=== PATIENT | female | born 1975 | race Caucasian/White ===

== ENCOUNTER 2017-01-27 11:26 | Day surgery (SDC) | payer OTHER ==
--- NOTE | 2017-01-27 08:22 | HP ---
DATE OF SURGERY: 01/27/2017 HISTORY OF PRESENT ILLNESS: The patient is a 41 year-old with nausea all the time, occasional right upper quadrant pain. No jaundice. She had an ultrasound show cholelithiasis. She was seen by Dr. Gomez some time ago and was originally scheduled for cholecystectomy at that time but had some bronchitis and then did not reschedule until now when she was having more symptoms so desires cholecystectomy at this time. PAST MEDICAL HISTORY: Anxiety, depression. MEDICATIONS: Zoloft, Prilosec, Flonase. ALLERGIES: SULFA. PAST SURGICAL HISTORY: Cyst removed from her ovary. She had tumor removed from her leg in the past. FAMILY HISTORY: Stomach and vulvar cancer. Prostate cancer. SOCIAL HISTORY: One pack per day smoker. Denies any alcohol abuse. REVIEW OF SYSTEMS: Ten systems reviewed per admission assessment. No chest pain or palpitations other systems negative or noncontributory as above and per preadmission questionnaire. PHYSICAL EXAMINATION: GENERAL: No acute distress. HEENT: Sclerae nonicteric. NECK: No JVD. CHEST: Equal excursion, nonlabored breathing. CVS: Regular rate and rhythm. ABDOMEN: Soft, some mild tenderness right upper quadrant. No peritoneal signs. EXTREMITIES: No significant edema. NEURO: Alert, oriented, moving extremities symmetrically. No gross motor deficits noted. IMPRESSION: Symptomatic cholelithiasis, probable chronic cholecystitis. I feel the patient will benefit from cholecystectomy. Risks and benefits explained in detail including but not limited to bleeding or infection, risk of trocar injury or hernia, small risk of bowel, bladder or blood vessel injury, small risk of bile leak, bile duct injury, retained stone or sludge possibly requiring further procedure either open or ERCP, general risk of anesthesia, deep venous thrombosis, pulmonary embolism, pneumonia, possibility of need to convert to open procedure with possibility that this procedure may not improve her symptoms that she may need further work up and/or testing, other studies or procedures. She understands and agrees to the planned procedure, will proceed with laparoscopic cholecystectomy with possible open as an outpatient.
[~2017-01-27 11:26] MED LIST: BRIDION 200MG/2ML IV ONE; DILAUDID 2 MG INJECTION IV ONE; DIPRIVAN 200 MG/20 ML IV ONE; Decadron 4 MG INJ IV ONE; Lactated Ringers 1,000 ML IV ONE; Lactated Ringers 1,000 ML IV SCH; MEFOXIN 2 GM PREMIX** 50 ML IV ONE; OFIRMEV 100 ML IV ONE; Quelicin Fliptop 200 MG/10 ML IJ ONE; SUBLIMAZE 100 MCG/2 ML IV ONE; Sensorcaine 0.25% 10 ML ONE; TORAdol 30 mg Injection IJ ONE; Zemuron 100 MG/10 ML IJ ONE; Zofran 4 MG/2 ML VIAL IV ONE
[2017-01-27] MEDS ORDERED: MEFOXIN 2 GM PREMIX** 50 ML IV ONE (11:56)
[2017-01-27] MEDS ORDERED: Lactated Ringers 1,000 ML IV ONE (11:56)
--- NOTE | 2017-01-27 15:44 | OP ---
SURGERY DATE: 01/27/17 SURGERY TIME: 1425 PREOPERATIVE DIAGNOSIS: 1. HISTORY OF SYMPTOMATIC CHOLELITHIASIS, CHRONIC CHOLECYSTITIS. POSTOPERATIVE DIAGNOSIS: 1. SYMPTOMATIC CHOLELITHIASIS, CHRONIC CHOLECYSTITIS. PROCEDURE: 1. Laparoscopic cholecystectomy. SURGEON: Dr. Alfonso Hastings. VICE PRESIDENT OF NURSING: Kory Thorpe MS-III. ANESTHESIA: General. ESTIMATED BLOOD LOSS: Minimal. INDICATIONS: As noted above. Risks and benefits explained in detail, but not limited to. Consent was obtained. DESCRIPTION OF PROCEDURE AND FINDINGS: The patient was taken to the OR. General anesthesia was induced. The abdomen was prepped and draped in the usual sterile fashion. After official time-out, no disagreement in planned procedure. Transverse incision made at the supraumbilical area. Fascia grasped and pulled up. Veress needle inserted. Tested with saline. Pneumoperitoneum accomplished insufflating from an opening pressure of 0-15. An 11 mm bladeless port and 5 mm lens were inserted without difficulty. There was no evidence of any intraabdominal injury secondary to trocar insertion. Two 5 mm right upper quadrant ports were placed as well as a 5 mm epigastric port. The gallbladder was grasped and retracted up over the edge of the liver. She had some Fgytpx-Hkwu-Iyok type adhesions. These were taken down sharply with the laparoscopic agustin allowing the two 5 mm ports to be placed in the right upper quadrant. The gallbladder was grasped and retracted over the edge of the liver and laterally away from Calot's triangle. Dissection carried from posterolateral to anterior fashion. Slowly, carefully, the cystic duct/infundibular area and main cystic artery were carefully skeletonized so the critical view was obtained both anteriorly and posteriorly. Once this was accomplished, the cystic artery was clipped X 3 and divided and the cystic duct was clipped X 3 and divided in the usual fashion. An additional clip was placed on the cystic duct stump just prior to dividing it well away from the visible common bile duct. The gallbladder was slowly, carefully dissected free up from its dense, almost concrete attachments to the liver bed staying directly on the gallbladder wall clipping additional oozing side branches off the cystic artery as necessary. Just prior to releasing the final attachments to the anterior edge of the liver, the liver bed reinspected. Clips noted to be in placed in the cystic duct/cystic artery stumps. There were no signs of any active bleeding or bile leakage. It was felt there was no benefit of any drain placement. Therefore, at this point, the gallbladder was released from its final attachments, pulled up and out the 10-11 umbilical port and passed off. This port site was closed with puncture closure device and #1 Vicryl. The remainder of the fascial defects were 5 mm and didn't require fascial closure at this time. However, liver bed reinspected one last time. Clips noted to be in place in cystic duct/cystic artery stumps. There were no signs of any active bleeding or bile leakage. It was felt there was no benefit of drain placement. Pneumoperitoneum decompressed. Wounds irrigated out. Skin incision closed with 4-0 Vicryl. Steri-strips and sterile dressing applied. 0.25% Marcaine local had been injected along each skin incision and fascial defect. The patient tolerated the procedure well. There were no immediate complications. Findings discussed with the family out in the waiting area.
[2017-01-27] MEDS ORDERED: Zofran 4 MG/2 ML VIAL ONE (16:49)
[2017-01-27] MEDS ORDERED: Zofran 4 MG/2 ML VIAL IV PRN (16:50)
[2017-01-27] MEDS ORDERED: Lactated Ringers 500 ML IV ONE (18:19)
[2017-01-27 19:25] VITALS: O2SAT 95
[2017-01-27 19:26] VITALS: BP 134/88; PULSE 70
== END 2017-01-27 19:30 | disposition home or self-care (01) ==
LOC: SDC 11:26
PROVIDERS: ATTEND Surgery
PROC: 0FT44ZZ Resection of Gallbladder, Percutaneous Endoscopic Approach (ICD-10-PCS; principal; 2017-01-27)
DX: K80.10 Calculus of gallbladder with chronic cholecystitis without obstruction (principal); F41.8 Other specified anxiety disorders; Z72.0 Tobacco use
CPT/HCPCS: 00790; 36415; 88304; J0330; J0694; J1100; J1170; J1885; J2405; J2704; J3010

== ENCOUNTER 2021-06-19 06:59 | Day surgery (SDC) | payer OTHER ==
[2021-06-19] MEDS ORDERED: Lactated Ringers 1,000 ML IV SCH (07:30)
[2021-06-19] MEDS ORDERED: CEFAZOLIN 2 GM-D5W BAG** 2 GM/50 ML ML IV SCH (07:30)
[2021-06-19] MEDS ORDERED: DIPRIVAN 200 MG/20 ML IV ONE (09:27)
[2021-06-19] MEDS ORDERED: Decadron 4 MG INJ ONE (09:27)
[2021-06-19] MEDS ORDERED: Zofran 4 MG/2 ML VIAL ONE ×2 (09:27→10:48)
[2021-06-19] MEDS ORDERED: SUBLIMAZE 100 MCG/2 ML ONE (09:27)
[2021-06-19] MEDS ORDERED: Xylocaine-Mpf 2% 5 Ml Vial ONE (09:27)
[2021-06-19] MEDS ORDERED: Compazine 10 MG/2 ML ONE (10:21)
[2021-06-19] MEDS ORDERED: Lactated Ringers 1,000 ML IV ONE (10:27)
[2021-06-19] MEDS ORDERED: TRANDATE 100 MG/20 ML MDV FOR DRIP IV ONE (10:29)
[2021-06-19] MEDS ORDERED: TORAdol 30 mg Injection ONE (10:48)
[2021-06-19] MEDS ORDERED: TORAdol 30 mg Injection IV ONE (10:51)
[2021-06-19] MEDS ORDERED: Zofran 4 MG/2 ML VIAL IV STA (10:57)
[2021-06-19 12:16] VITALS: BP 154/82; PULSE 77; O2SAT 96
--- NOTE | 2021-06-20 09:30 | OP ---
SURGERY DATE/TIME: 06/19/2021 0926 PREOPERATIVE DIAGNOSIS: Menorrhagia, dysmenorrhea. POSTOPERATIVE DIAGNOSIS: Menorrhagia, dysmenorrhea with endometrial polyps. PROCEDURE: Hysteroscopic MyoSure removal of endometrial polyps, D&C with NovaSure ablation. SURGEON: Amos Garcia D.O. TECHNOLOGY PROFESSIONAL: Trae Salcedo surgical endoscopist. ANESTHESIA: General. ESTIMATED BLOOD LOSS: Minimal. COMPLICATIONS: None. INDICATIONS: The risks, benefits, indications and alternatives of the procedure were reviewed with the patient prior to the procedure. The patient understood the risk of infection, bleeding, bowel injury, bladder injury, ureteral injury, uterine perforation, pelvic infection, thromboembolic disorder associated with the surgery and desires to have this surgery as a possible means to alleviate her current medical condition. DESCRIPTION OF PROCEDURE AND FINDINGS: At this point the patient is taken to the operating room, given general sedation, placed in the dorsal lithotomy position. Prepped and draped in the usual sterile fashion. A weighted speculum is then placed in the patient's vagina and the anterior lip of the cervix was grasped with a single tooth tenaculum. Endocervical dilators were advanced through the endocervical canal as a means to dilate the cervix and the uterus was sounded to approximately 7 cm. From this point a 5 mm hysteroscope is then placed in through the endocervical canal where visualization revealed her to have an anterior polyp approximately 0.5 x 0.5 cm in dimension and the posterior polyp measuring approximately 1 x 1 cm just distal to the internal os. From this point the MyoSure was then introduced and was placed through the hysteroscopic channel and MyoSure was used to remove both polyps in their entirety without complication. Hemostasis obtained. No other lesions were noted within the endometrial cavity. From this point the hysteroscope was removed and a curette was then placed into the fundus of the uterus and curettage performed in all quadrants of the uterus retrieving a mild amount of tissue. From this point hemostasis obtained. From this point the NovaSure was then introduced to the endocervical canal and was measured at approximately 6 cm and the width was 2.6 cm with an ablative time of approximately 1 minute 4 seconds. The machine was turned on for an ablative time where it was engaged. At the completion of the ablation NovaSure was disengaged and removed from the uterine cavity without complication. From this point all instruments were removed from the patient's vaginal region. The patient was then taken out of dorsal lithotomy position and was taken out of anesthesia and was then taken to the recovery room in stable condition. All instruments and laps were accounted for x2.
== END 2021-06-19 12:15 | disposition home or self-care (01) ==
LOC: SDC 06:59
PROVIDERS: ATTEND Obstetrics & Gynecology
DX: N92.0 Excessive and frequent menstruation with regular cycle (principal); N94.6 Dysmenorrhea, unspecified; Z20.822 Contact with and (suspected) exposure to COVID-19; Z79.899 Other long term (current) drug therapy
CPT/HCPCS: 58558; 84703; U0003; 88305; J0690; J1100; J1885; J2405; J2704; J3010

== ENCOUNTER 2021-07-04 13:57 | Emergency (ER) | payer OTHER ==
--- NOTE | 2021-07-04 16:23 | ERPHSYRPT ---
- History of Present Illness Time Seen by Provider: 07/04/21 14:20 Source: patient Exam Limitations: no limitations Patient Subjective Stated Complaint: Pt went for a follow up visit with Dr. Garcia and her blood pressure was running 150/? and 160/? and he wanted her to come to the ER to be evaluated Triage Nursing Assessment: Pt brought self to the ER but her daughter is outside with her car, hypertensive, denies pain, denies any issues with her blood pressure in the past, denies any additional shortness of breath but states that she does have it sometimes due to smoking, pulses normal, skin n/w/d, doesn't appear to be in any distress Physician History: Patient is a 46-year-old female presents to our ED as a referral from her [employer] physician for systolic blood pressure in the 150s to 160s. Patient otherwise a symptomatic headache. No chest pain or shortness of breath. No nausea vomiting or diaphoresis. No abdominal pain. No back pain. No fever. No rash. Patient is pain-free. No dizziness. Patient states she does not have a history of hypertension. Patient is here for medical screening. Timing/Duration: today Severity: mild Modifying Factors: Improves With: nothing Associated Symptoms: denies symptoms Allergies/Adverse Reactions: Sulfa (Sulfonamide Antibiotics) Allergy (Severe, Verified 07/04/21 14:53) pt stated" the last time i had it it almost killed me" Home Medications: Omeprazole 20 MG [Prilosec 20 mg] 40 mg PO DAILY 11/23/13 [History] Sertraline HCl [Zoloft] 100 mg PO DAILY 01/07/17 [History] Hx Influenza Vaccination/Date Given: No Hx Pneumococcal Vaccination/Date Given: No Travel Risk - International Travel Have you traveled outside of the country in past 3 weeks: No - Coronavirus Screening Are you exhibiting any of the following symptoms?: No Close contact with a COVID-19 positive Pt in past 14-21 Days: No - Vaccine Status Have you recieved a Covid-19 vaccination: No - Review of Systems Constitutional: No Symptoms, No Fever, No Chills Eyes: No Symptoms Ears, Nose, & Throat: No Symptoms Respiratory: No Symptoms, No Cough, No Dyspnea Cardiac: No Symptoms, No Chest Pain, No Edema, No Syncope Abdominal/Gastrointestinal: No Symptoms, No Abdominal Pain, No Nausea, No Vomiting, No Diarrhea Genitourinary Symptoms: No Symptoms, No Dysuria Musculoskeletal: No Symptoms, No Back Pain, No Neck Pain Skin: No Symptoms, No Rash Neurological: No Symptoms, No Dizziness, No Focal Weakness, No Sensory Changes Psychological: No Symptoms Endocrine: No Symptoms Hematologic/Lymphatic: No Symptoms Immunological/Allergic: No Symptoms All Other Systems: Reviewed and Negative - Past Medical History Pertinent Past Medical History: Yes Neurological History: Migraines ENT History: No Pertinent History Cardiac History: No Pertinent History Respiratory History: Other Endocrine Medical History: Other Musculoskeletal History: No Pertinent History GI Medical History: GERD, Gallbladder Disease History: Other Psycho-Social History: Anxiety, Depression Female Reproductive Disorders: Endometriosis Other Medical History: hx of lesions on her liver,hx kidney stones. Current everyday smoker 1 pack per day. - Past Surgical History Past Surgical History: Yes Neuro Surgical History: No Pertinent History Cardiac: No Pertinent History Respiratory: No Pertinent History Gastrointestinal: No Pertinent History Genitourinary: No Pertinent History Musculoskeletal: No Pertinent History Female Surgical History: Other Other Surgical History: benign cyst removed from bone of left leg when pt was 4, ovarian cyst removed, ablation - Social History Smoking Status: Current every day smoker How long have you smoked: 20 years Exposure to second hand smoke: Yes Drug Use: none Patient Lives Alone: No - Female History Hx Now: No - Nursing Vital Signs Nursing Vital Signs: Initial Vital Signs Pulse Rate 78 07/04/21 14:07 Respiratory Rate 18 07/04/21 14:07 Blood Pressure 165/78 07/04/21 14:07 O2 Sat by Pulse Oximetry 97 07/04/21 14:07 Pain Scale Pain Intensity 0 - Physical Exam General Appearance: no apparent distress, alert Eye Exam: PERRL/EOMI, eyes nml inspection Ears, Nose, Throat Exam: normal ENT inspection, TMs normal, pharynx normal, moist mucous membranes Neck Exam: normal inspection, non-tender, supple, full range of motion Respiratory Exam: normal breath sounds, lungs clear, No respiratory distress Cardiovascular Exam: regular rate/rhythm, normal heart sounds, normal peripheral pulses Gastrointestinal/Abdomen Exam: soft, normal bowel sounds, No tenderness, No mass Back Exam: normal inspection, normal range of motion, No CVA tenderness, No vertebral tenderness Extremity Exam: normal inspection, normal range of motion, pelvis stable Neurologic Exam: alert, oriented x 3, cooperative, normal mood/affect, nml cerebellar function, nml station & gait, sensation nml, No motor deficits Skin Exam: normal color, warm, dry, No rash Lymphatic Exam: No adenopathy SpO2 Interpretation: normal SpO2: 99 O2 Delivery: Room Air - Course Nursing assessment & vital signs reviewed: Yes - Progress Progress: improved Progress Note: Patient reassessed. She feels well. Blood pressure steadily decreasing back towards her baseline. Patient remains asymptomatic. Case discussed with Dr. Sidhu covering Dr. Sullivan. She reviewed patient's chart states that patient's blood pressure typically runs 140s. We will start patient on lisinopril [address] Sidhu. Patient advised to follow-up with her primary care doctor within 48 hours for reevaluation. Patient will pick remover her medications today. She voices no other complaints or concerns at this time. Will discharge home. No indication for further work-up at this time. Portions of this note were created with voice recognition technology. There may be grammatical, spelling, punctuation or sound alike errors 07/04/21 16:36 Counseled pt/family regarding: diagnosis, need for follow-up - Departure Departure Disposition: Home Clinical Impression: Essential hypertension Condition: Stable Critical Care Time: No Referrals: MARIA INES SULLIVAN [Primary Care Provider] - Instructions: Malignant Hypertension (DC) Additional Instructions: Discharge/Care Plan JOLIE VILLANUEVA ERIKA was seen on 07/04/21 in the Emergency Room. The patient was counseled regarding Diagnosis,Lab results, Imaging studies, need for follow up and when to return to the Emergency Room. Prescriptions given: Discharge Note I have spoken with the patient and/or caregivers. I have explained the patient's condition, diagnosis and treatment plan based on the information available to me at this time. I have answered the patient's and/or caregiver's questions and addressed any concerns. The patient and/or caregivers have as good understanding of the patient's diagnosis, condition and treatment plan as can be expected at this point. The vital signs have been stable. The patient's condition is stable and appropriate for discharge from the emergency department. The patient will pursue further outpatient evaluation with the primary care physician or other designated or consulting physician as outlined in the discharge instructions. The patient and/or caregivers are agreeable to this plan of care and follow-up instructions have been explained in detail. The patient and/or caregivers have received these instruction. The patient/and or caregivers are aware that any significant change in condition or worsening of symptoms should prompt an immediate return to this or the closest emergency department or call 911. Prescriptions: Lisinopril 10 mg [Zestril 10 MG] 10 mg PO DAILY #14 tablet
[2021-07-04 16:31] VITALS: BP 164/97; PULSE 78
[2021-07-04 16:36] VITALS: O2SAT 99
== END 2021-07-04 16:31 | disposition home or self-care (01) ==
LOC: ED 13:57
DX: I10 Essential (primary) hypertension (principal)
CPT/HCPCS: 99284

== ENCOUNTER 2023-03-17 05:57 | Day surgery (SDC) | payer OTHER ==
[2023-03-17] MEDS ORDERED: Lactated Ringers 1,000 ML IV SCH (06:30)
[2023-03-17] MEDS ORDERED: Xylocaine-Mpf 2% 5 Ml Vial ONE (07:23)
[2023-03-17] MEDS ORDERED: DIPRIVAN 200 MG/20 ML IV ONE ×2 (07:23→07:33)
[2023-03-17 08:43] VITALS: O2SAT 98
[2023-03-17 08:51] VITALS: BP 134/78; PULSE 74
--- NOTE | 2023-03-18 07:49 | OP ---
SURGERY DATE/TIME: 03/17/2023 0702 PREOPERATIVE DIAGNOSIS: Screening exam. POSTOPERATIVE DIAGNOSIS: Moderate sigmoid diverticulosis otherwise normal colon. PROCEDURE: Colonoscopy. SURGEON: Dr. Pierre. ANESTHESIA: MAC. Medications given by anesthesia department. HISTORY: The patient is a 48-year-old white female presenting now for screening colonoscopy. She was appraised of the risks of the procedure including the risk of perforation, phlebitis, untoward reaction to medication, bleeding and missed lesions. The patient verbalized her understanding and desired to have the procedure performed. DESCRIPTION OF PROCEDURE: The patient was given the medications by the anesthesia department. She had continuous pulse oximetry, ECG monitoring and intermittent blood pressure monitoring during the examination. She was placed in the left lateral decubitus position. A digital rectal examination was performed and revealed normal anal sphincter tone and no masses. The flexible Olympus pediatric colonoscope was used to intubate the rectum. A view of the colon was developed sequentially to the cecum. Upon insertion and withdrawal, including a retroflex view in the rectum was noted mild to moderate sigmoid diverticulosis but no other mucosal lesions were encountered. The scope was removed from the patient who tolerated the procedure well and was sent back to OP recovery in good condition. The prep was noted to be fair to good.
== END 2023-03-17 08:51 | disposition home or self-care (01) ==
LOC: SDC 05:57
PROVIDERS: ATTEND Family Medicine
DX: Z12.11 Encounter for screening for malignant neoplasm of colon (principal); K57.30 Diverticulosis of large intestine without perforation or abscess without bleeding
CPT/HCPCS: J2704